=== PATIENT | female | born 1965 | race African-American/Black ===

== ENCOUNTER 2024-06-20 02:09 | Inpatient (IN) | payer MEDICARE, OTHER ==
[2024-06-20] VITALS (13 sets, daily range): BP systolic 104–120; BP diastolic 61–71; PULSE 64–78; RESP 12–20; TEMP 97.8–98.1; O2SAT 94–97
[~2024-06-20] VITALS: Ht 162.6 cm; Wt 51.8 kg
[2024-06-20 02:47] LABS: Basophils # (auto) 0.1 10 ^3/uL (0-0.2); Basophils % (auto) 1.4 % (0.0-2.0); Eosinophils # (auto) 0.1 10 ^3/uL (0-0.8); Eosinophils % (auto) 1.8 % (0.0-7.0); Hematocrit 40.1 % (36.0-46.0); Hemoglobin 13.8 g/dL (12.2-16.2); Lymphocytes # (auto) 1.8 10 ^3/uL (0.4-5.4); Lymphocytes % (auto) 47.1 % (10.0-50.0); Mean Corpuscular Hemoglobin 31.8 pg (28.0-32.0); Mean Corpuscular Hgb Conc. 34.4 g/dL (32.0-36.0); Mean Corpuscular Volume 92.6 fL (80.0-100.0); Monocytes # (auto) 0.5 10 ^3/uL (0-1.3); Monocytes % (auto) 13.5 % (0.0-12.0); Neutrophils # (auto) 1.3 10 ^3/uL (1.6-8.6); Neutrophils % (auto) 36.2 % (37.0-80.0); Nucleated Red Blood Cells % 0.1 %; Platelet Count (auto) 228 10^3/uL (140-450); Red Blood Cells 4.33 10^6/uL (4.0-5.20); Red Cell Distribution Width 14.1 % (11.8-14.3); White Blood Cell 3.7 10^3/uL (4.4-10.8)
--- NOTE | 2024-06-20 02:52 | DVH ---
CHEST RADIOGRAPH Indication: Elevated troponin Technique: Single frontal view of the chest was obtained Comparison: None IMPRESSION: Heart appears normal in size. The lungs appear clear without focal airspace opacity, effusion, or pn eumothorax
[2024-06-20 02:56] LABS: Alanine Aminotransferase 13 U/L (7-40); Alkaline Phosphatase 70 U/L (46-116); Anion Gap 5 (5-15); Aspartate Aminotransferase 20 U/L (13-40); BUN/Creatinine Ratio 10.4 (10.0-20.0); Calcium 9.4 mg/dL (8.7-10.4); Carbon Dioxide 24 mmol/L (20-31); Glucose 95 mg/dL (74-106); Sodium 137 mmol/L (136-145)
[2024-06-20 02:57] LABS: Albumin 3.9 g/dL (3.2-4.8)
[2024-06-20 02:58] LABS: Bilirubin, Total 0.2 mg/dL (0.2-1.0); Blood Urea Nitrogen 8 mg/dL (9-23); Chloride 108 mmol/L (98-107); Total Protein 8.9 g/dL (5.7-8.2)
--- NOTE | 2024-06-20 03:01 | ED.PDOC ---
History of Present Illness HPI Comments 59 y/o F is BIBA as a transfer from [facility] ([facility]) after being found with elevated troponin level value of 0.13 ([facility] reference levels: 0.02- 0.04). Patient comments on, initially, being seen at [facility], due to her son finding her semi-unresponsive at home, slouched over her couch, after having weakness, nausea, vomiting, and diarrhea for the past few days. She denies having any chest pain, shortness of breath, fever, chills, or other associated symptoms or modifiers at this time. Time Seen by MD: 02:20 Reviewed Notes: Nurses Notes, Design Quality Engineer Notes, Medications, Allergies Allergies: Coded Allergies: NO KNOWN ALLERGIES (Unverified , 06/20/24) Information Source: Patient, Transfer Record, Emergency Med Personnel Mode of Arrival: EMS Severity: Moderate Timing: Hours Duration: Since onset Prehospital treatment: 12 Lead EKG, Tube Winder Review of Systems: REVIEW OF SYSTEMS: No fever, no chills, positive fatigue fatigue HEENT: No sore throat, no earache, no congestion, no neck pain. Cardiac: No chest pain. No palpitations. Lungs: No shortness of breath, no cough. GI: Positive nausea vomiting, diarrhea, no constipation, no abdominal pain : No dysuria, frequency, or urgency. No hematuria. Musculoskeletal: No joint pain , no joint swelling, no extremity edema. Skin: No rash, no itching. Neuro: No headache, no dizziness, no weakness, positive syncope Vital Signs Vital Signs Date Time Temp Pulse Resp B/P (MAP) Pulse Ox O2 Delivery O2 Flow Rate FiO2 06/20/24 03:11 66 14 96 Room Air* 0 21 06/20/24 03:00 98.3 112/68 (83) 98.3 Physical Exam General: Awake, alert and oriented. No acute distress. Skin: Skin in warm, dry and intact. Appropriate color for ethnicity. HEENT: The head is normocephalic and atraumatic. Conjunctivae are clear without exudates or hemorrhage. Sclera is non-icteric. EOM are intact. No signs of nystagmus. Eyelids are normal in appearance without swelling or lesions. Oral mucosa is pink and moist Neck: The neck is supple with normal range of motion. No JVD. Cardiac: Heart rate and rhythm are normal. No murmurs, gallops, or rubs are auscultated. Respiratory: No signs of respiratory distress. Lung sounds are clear in all lobes bilaterally without rales, ronchi, or wheezes. Abdominal: Abdomen is soft, non-tender without distention. Bowel sounds are present and normoactive in all four quadrants. Extremities: Upper and lower extremities are atraumatic in appearance without deformity or edema. Neurological: The patient is awake, alert and oriented to person, place, and time with normal speech. Speech is clear. There is no facial asymmetry. Psychiatric: Appropriate mood and affect. Good judgement and insight. No visual or auditory hallucinations. Past Medical History PAST MEDICAL HISTORY: CAD, COPD, HTN Surgical History: PTCA (2x; placements in 2004 and 2008) FINANCE INSURANCE MANAGER History: Denies all FINANCE INSURANCE MANAGER Hx Family History Family History: Unknown Social History Smoker: Non-Smoker Alcohol: Denies ETOH Use Drugs: Denies Drug Use Lives In: Home Was a procedure done? Was a procedure done?: No Differential Dx Considerations may include: elevated troponin, [place], viral syndrome, URI, PNA, bronchitis X-Ray, Labs, Meds, VS Vital Signs Date Time Temp Pulse Resp B/P (MAP) Pulse Ox O2 Delivery O2 Flow Rate FiO2 06/20/24 03:11 66 14 96 Room Air* 0 21 06/20/24 03:00 98.3 66 14 112/68 (83) 96 98.3 06/20/24 02:11 73 06/20/24 02:09 98.2 71 14 110/68 (82) 99 Lab Test 06/20/24 02:23 Range/Units White Blood Count 3.7 L 4.4-10.8 10^3/uL Red Blood Count 4.33 4.0-5.20 10^6/uL Hemoglobin 13.8 12.2-16.2 g/dL Hematocrit 40.1 36.0-46.0 % Mean Corpuscular Volume 92.6 80.0-100.0 fL Mean Corpuscular Hemoglobin 31.8 28.0-32.0 pg Mean Corpuscular Hemoglobin Concent 34.4 32.0-36.0 g/dL Red Cell Distribution Width 14.1 11.8-14.3 % Platelet Count 228 140-450 10^3/uL Mean Platelet Volume 8.7 6.9-10.8 fL Neutrophils (%) (Auto) 36.2 L 37.0-80.0 % Lymphocytes (%) (Auto) 47.1 10.0-50.0 % Monocytes (%) (Auto) 13.5 H 0.0-12.0 % Eosinophils (%) (Auto) 1.8 0.0-7.0 % Basophils (%) (Auto) 1.4 0.0-2.0 % Neutrophils # (Auto) 1.3 L 1.6-8.6 10 ^3/uL Lymphocytes # (Auto) 1.8 0.4-5.4 10 ^3/uL Monocytes # (Auto) 0.5 0-1.3 10 ^3/uL Eosinophils # (Auto) 0.1 0-0.8 10 ^3/uL Basophils # (Auto) 0.1 0-0.2 10 ^3/uL Nucleated Red Blood Cells 0.1 % Sodium Level 137 136-145 mmol/L Potassium Level 4.0 3.5-5.1 mmol/L Chloride Level 108 H 98-107 mmol/L Carbon Dioxide Level 24 20-31 mmol/L Anion Gap 5 5-15 Blood Urea Nitrogen 8 L 9-23 mg/dL Creatinine 0.77 0.550-1.02 mg/dL Glomerular Filtration Rate Calc 88 >90 mL/min BUN/Creatinine Ratio 10.4 10.0-20.0 Serum Glucose 95 74-106 mg/dL Calcium Level 9.4 8.7-10.4 mg/dL Total Bilirubin 0.2 0.2-1.0 mg/dL Aspartate Amino Transferase (AST) 20 13-40 U/L Alanine Aminotransferase (ALT) 13 7-40 U/L Alkaline Phosphatase 70 46-116 U/L Troponin I High Sensitivity 494 *H </=34 ng/L Total Protein 8.9 H 5.7-8.2 g/dL Albumin 3.9 3.2-4.8 g/dL Time of 1ST Reevaluation: 02:50 Reevaluation 1ST: Unchanged Patient Education/Counseling: Treatment, Need For Follow Up Family Education/Counseling: No Family Present Departure 1 Departure Time of Disposition: 03:38 Impression: Primary Impression: NSTEMI (non-ST elevated myocardial infarction) Disposition: 02 SHORT TERM HOSPITAL Condition: Stable Comments 59-year-old female who arrived as a transfer, or so for NSTEMI. Patient initiated on heparin here in the emergency department. Patient admitted for further treatment, evaluation and monitoring. Extensive evaluation was performed in attempt to identify or rule out: (See differential diagnosis section) The following tests were ordered, and results were reviewed by me: (See diagnostic results section) The following test were independently interpreted by me: EKG, chest x-ray I reviewed and agreed with the following test results read by other providers: Chest x-ray I reviewed the following notes from the pt's past medical encounters: N/A Additional information was gathered from interviewing the following independent historians: EMS personnel, Discussion of management or test interpretation with external physician/other qualified health health care recruiter:Dr. Stroud at [facility] @00:09 Addressed an acute or chronic illness that poses a threat to life or bodily function: NSTEMI, possible syncopal episode, coronary artery disease Decision regarding hospitalization or escalation of hospital level of care: Risk and benefits of admission for further treatment of patient's condition was considered. Due to patient's current clinical condition, high risk of decline and poor outcome if discharged and need for further inpatient management and monitoring, patient will be admitted to the hospital. Drug therapy requiring intensive monitoring for toxicity: IV heparin Parenteral controlled substances: N/A Decision regarding elective major surgery with identified patient or procedure risk factors: N/A Decision regarding emergency major surgery: N/A Decision not to resuscitate or to de-escalate care because of poor prognosis: N/A Diagnosis or treatment significantly limited by social determinants of health: N/A Critical Care Note Critical Care Time?: No Stability Stability form required: No Heart Score Heart Score: Heart Score Response (Comments) Value History Slightly Suspicious 0 EKG Normal 0 Age 45-64 1 Risk Factors >3 or Hx ASHD 2 Troponin >3 x's Normal limit 2 Total 5 I personally scribed for BANDAR BONDS MD ([email or web address]) on 06/20/24 at 03:01. Electronically submitted by Jameel Anguiano ([email or web address]). BANDAR BONDS MD Jun 20, 2024 03:01
[2024-06-20 04:03] LABS: Urine Bacteria None Seen /hpf (None Seen)
[2024-06-20 04:22] LABS: INR 1.03 (0.9-1.15); Partial Thromboplastin Time 27.1 SEC (24.5-34.5); Prothrombin Time 10.9 sec (9.3-11.8)
[2024-06-20 04:29] LABS: Urine Blood Negative /uL (Negative); Urine Clarity Clear (Clear); Urine Color Yellow (Yellow); Urine Mucus FEW (None Seen); Urine Protein, UAD TRACE (Negative); Urine Squamous Epithelial Cell FEW /hpf (<5); Urine Urobilinogen 2 mg/dL (Negative); Urine WBC < 1 /HPF (0-5)
[2024-06-20] MEDS ORDERED: MORPHINE SULFATE INJ 2 MG/ml SYRG IV PRN (04:45)
[2024-06-20] MEDS ORDERED: NITROGLYCERIN 0.4 MG SL TAB SL PRN (04:45)
[2024-06-20] MEDS ORDERED: ACETAMINOPHEN 325 MG TAB PO PRN (04:45)
--- NOTE | 2024-06-20 04:48 | DVHHP2 ---
History of Present Illness Reason for Visit: Abnormal labs History of Present Illness 59-year-old female presents for evaluation of abnormal blood work. Patient is being transferred from [facility]. Patient presented to outside facility after she was found unresponsive in her bed by her son. Patient denies dizziness, headache or chest pain. Currently denies any acute complaints. Past Medical History SD, hypertension, COPD, CAD and multiple sclerosis Past Surgical History PTCA Family History Noncontributory Smoke: No ALCOHOL: none Drugs: None Lives: with Family Review of Systems Review of Systems Review of systems are currently negative otherwise addressed in HPI. Allergies: Coded Allergies: NO KNOWN ALLERGIES (Unverified , 06/20/24) Medications Current Medications Medications Dose Ordered Sig/Mile Route Start Time Stop Time Status Last Admin Dose Admin Heparin Sodium/ Dextrose 250 ml @ 6 mls/hr Q24H IV 06/20/24 03:45 Exam Vital Signs Vital Signs Date Time Temp Pulse Resp B/P (MAP) Pulse Ox O2 Delivery O2 Flow Rate FiO2 06/20/24 03:11 66 14 96 Room Air* 0 21 06/20/24 03:00 98.3 112/68 (83) 98.3 Exam Gen: 59-year-old female in no apparent distress. Skin: Warm, dry, normal color and texture, no rash. HEENT: Normocephalic atraumatic, mucous membranes moist and pink. Neck: Cervical and supraclavicular nodes normal without enlargement, trachea is midline, thyroid gland is normal without masses. Pulmonary: Clear to auscultation and percussion bilaterally. Cardiac: Regular rate and rhythm. No murmur Abdomen: Soft, nontender, nondistended, bowel sounds present all 4 quadrants, no guarding, no rigidity, no organomegaly. Extremities: No cyanosis, clubbing, no edema Neuro: Cranial nerves II through XII grossly intact, normal affect and speech, no focal motor deficits. Labs/Xrays G PHYSICIAN: BANDAR BONDS MD PROCEDURE(s): CXR1 - CHEST XRAY 1 VIEW REASON: Elevated troponin ORDER NUMBER(s): [id number], ACCESSION NUMBER(s): [id number] CHEST RADIOGRAPH Indication: Elevated troponin Technique: Single frontal view of the chest was obtained Comparison: None IMPRESSION: Heart appears normal in size. The lungs appear clear without focal airspace opacity, effusion, or pneumothorax normal sinus rhythm with left bundle branch block Labs Test 06/20/24 02:41 06/20/24 02:23 Range/Units Urine Color Yellow Yellow Urine Clarity Clear Clear Urine pH 6.0 5.0-9.0 Urine Specific [place] 1.030 1.001-1.035 Urine Protein Trace H Negative Urine Ketones Negative Negative Urine Blood Negative Negative /uL Urine Nitrite Negative Negative Urine Bilirubin Negative Negative Urine Urobilinogen 2 H Negative mg/dL Urine Leukocyte Esterase Negative Negative /uL Urine RBC 1 0 - 4 /hpf Urine Microscopic WBC < 1 0-5 /HPF Urine Squamous Epithelial Cells Few <5 /hpf Urine Bacteria None seen None Seen /hpf Urine Mucus Few None Seen Urine Glucose Normal Normal mg/dL White Blood Count 3.7 L 4.4-10.8 10^3/uL Red Blood Count 4.33 4.0-5.20 10^6/uL Hemoglobin 13.8 12.2-16.2 g/dL Hematocrit 40.1 36.0-46.0 % Mean Corpuscular Volume 92.6 80.0-100.0 fL Mean Corpuscular Hemoglobin 31.8 28.0-32.0 pg Mean Corpuscular Hemoglobin Concent 34.4 32.0-36.0 g/dL Red Cell Distribution Width 14.1 11.8-14.3 % Platelet Count 228 140-450 10^3/uL Mean Platelet Volume 8.7 6.9-10.8 fL Neutrophils (%) (Auto) 36.2 L 37.0-80.0 % Lymphocytes (%) (Auto) 47.1 10.0-50.0 % Monocytes (%) (Auto) 13.5 H 0.0-12.0 % Eosinophils (%) (Auto) 1.8 0.0-7.0 % Basophils (%) (Auto) 1.4 0.0-2.0 % Neutrophils # (Auto) 1.3 L 1.6-8.6 10 ^3/uL Lymphocytes # (Auto) 1.8 0.4-5.4 10 ^3/uL Monocytes # (Auto) 0.5 0-1.3 10 ^3/uL Eosinophils # (Auto) 0.1 0-0.8 10 ^3/uL Basophils # (Auto) 0.1 0-0.2 10 ^3/uL Nucleated Red Blood Cells 0.1 % Prothrombin Time 10.9 9.3-11.8 sec Prothrombin Time INR 1.03 0.9-1.15 Activated Partial Thromboplast Time 27.1 24.5-34.5 SEC Sodium Level 137 136-145 mmol/L Potassium Level 4.0 3.5-5.1 mmol/L Chloride Level 108 H 98-107 mmol/L Carbon Dioxide Level 24 20-31 mmol/L Anion Gap 5 5-15 Blood Urea Nitrogen 8 L 9-23 mg/dL Creatinine 0.77 0.550-1.02 mg/dL Glomerular Filtration Rate Calc 88 >90 mL/min BUN/Creatinine Ratio 10.4 10.0-20.0 Serum Glucose 95 74-106 mg/dL Calcium Level 9.4 8.7-10.4 mg/dL Total Bilirubin 0.2 0.2-1.0 mg/dL Aspartate Amino Transferase (AST) 20 13-40 U/L Alanine Aminotransferase (ALT) 13 7-40 U/L Alkaline Phosphatase 70 46-116 U/L Troponin I High Sensitivity 494 *H </=34 ng/L Total Protein 8.9 H 5.7-8.2 g/dL Albumin 3.9 3.2-4.8 g/dL Assessment/Plan Assessment/Plan Assessment Syncope Elevated troponin rule out NSTEMI Hypertension History of SD Plan Admit the patient to telemetry to the hospitalist Cardiology consultation Continue heparin drip Resume home medications Continue treatment per orders. Plan discussed with: Patient Date of Service: Jun 20, 2024 Billing Provider: CAPRI MCGRAW Common Visit Codes: [id number] INP/OBS CARE (HIGH) CAPRI MCGRAW Jun 20, 2024 04:48
[2024-06-20] MEDS: HEPARIN SODIUM (PORCINE) 5000 UNITS/ML 1ML VIAL IV ONE (04:49)
[2024-06-20] MEDS: HEPARIN DRIP/D5W 100UNITS/ML 250 ML IV SCH ×2 (04:50→12:14)
--- NOTE | 2024-06-20 05:24 | DVH ---
EXAM: CT Head Without Intravenous Contrast CLINICAL INDICATION: syncope TECHNIQUE: Axial computed tomography images of the head/brain without intravenous contrast. This CT exam was performed using one or more of the following dose reduction techniques: automated exposure control, adjustment of the mA and/or kV according to patient size, and/or use of iterative reconstru ction technique. CONTRAST: RADIATION DOSE: CTDIvol = 50.4 mGy, DLP = 808.14 mGy-cm COMPARISON: None FINDINGS: BRAIN AND EXTRA-AXIAL SPACES: No acute intracranial hemorrhage, midline shift or mass effect. If sy mptoms persist, further evaluation with MRI is recommended. No significant white matter disease. BONES/JOINTS: Unremarkable. No acute fracture. SOFT TISSUES: Unremarkable. SINUSES: Unremarkable as visualized. No acute sinusitis. MASTOID AIR CELLS: Unremarkable as visualized. No mastoid effusion. OTHER FINDINGS: . IMPRESSION: No acute intracranial hemorrhage, midline shift or mass effect. If symptoms persist, further evaluat ion with MRI is recommended.
--- NOTE | 2024-06-20 06:41 | ECG ---
[facility] Test Date: 2024-06-20 Test Time: 02:11:59 Pat Name: VILLA ROSA Department: ED Room: 0246T Gender: F 911 Dispatcher: STACY : 1965 Requested By: BNADAR BONDS Order Number: [id number] Reading MD: Florenitn Foreman Measurements Intervals Arthur Rate: 73 P: 73 [place]: 141 QRS: 34 QRSD: 128 T: 89 QT: 392 QTc: 432 Interpretive Statements Sinus rhythm Left atrial enlargement Left bundle branch block Electronically Signed On 06-23-2024 18:52:49 PDT by Florentin Foreman Please click the below link to view image of tracing.
--- NOTE | 2024-06-20 09:00 | DVH ---
Carotid Duplex Date: 06/20/2024 08:06 AM Clinical History: syncope Comparison: None Technique: Duplex Doppler evaluation of the extracranial carotid and vertebral arteries including color Doppler and spectral/pulsed waveform analysis was performed. Findings: Velocities and ratios within limits IMPRESSION: No hemodynamically significant stenosis noted in the right carotid system. No hemodynamically significant stenosis noted in the left carotid system. Reference: Radiology 2003; 229:340-346
[2024-06-20] MEDS: METOPROLOL TARTRATE 25 MG TAB PO SCH (10:00)
[2024-06-20] MEDS ORDERED: ASPirin 81 mg TAB PO SCH (10:00)
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
[2024-06-20 11:14] LABS: Cannabinoid Screen, Urine Pos (NEGATIVE)
[2024-06-20 11:14] LABS: INR 1.08 (0.9-1.15); Partial Thromboplastin Time 43.9 SEC (24.5-34.5); Prothrombin Time 11.4 sec (9.3-11.8)
[2024-06-20 11:32] LABS: Amphetamine Screen, Urine Neg (NEGATIVE); Barbiturate Scree,Urine Neg (NEGATIVE); Benzodiazephine Screen, Urine Neg (NEGATIVE); Cocaine Screen, Urine Neg (NEGATIVE); Opiate Scree,Urine Neg (NEGATIVE); Phencyclidine Screen, Urine Neg (NEGATIVE)
[2024-06-20 11:50] LABS: Magnesium 1.9 mg/dL (1.6-2.6)
--- NOTE | 2024-06-20 12:23 | CONS ---
Pharmacy Clinical Information: Heparin per pharmacy Spoke to GENNY Goncalves regarding heparin dose change Current dose: 600 units/hr Current aPTT: 43.9 on 06/20/24 @ 10:40 Bolus: No Increase (new dose): 800 units/hr Date and time new dose started: 06/20/24 @ 12:14 Next aPTT: 06/20/24 @ 18:00 GENNY Goncalves read back new dose: 800 units/hr Comments: to clarify and/or to report heparin errors (e.g., value entered wrong on the IV pump) ERNA CUMMINGS [facility] Jun 20, 2024 12:23
[2024-06-20] MEDS: MIDAZOLAM HCL 2MG/2ML 2ml VIAL (1mg/ml) ONE (12:33)
[2024-06-20] MEDS: fentaNYL CITRATE 100 MCG/2 ML VL ONE (12:33)
[2024-06-20] MEDS: LIDOCAINE 2%HCL (LOCAL ANESTH.) INJ 20ML MDV ONE (12:33)
[2024-06-20] MEDS: ANGIOMAX 250 MG VIAL IV ONE (12:33)
[2024-06-20] MEDS: HEPARIN SODIUM (PORCINE) 5000 UNITS/ML 1ML VIAL ONE (12:33)
[2024-06-20] MEDS: SODIUM CHL 0.9% 0 ML ONE (12:34)
[2024-06-20] MEDS: VERAPAMIL 2.5MG/ML INJ 2ML VIAL IV ONE (12:36)
--- NOTE | 2024-06-20 13:32 | DVHPN2 ---
Reviewed: Care Plan, H&P, Labs, Medications, Previous Orders, Radiology Changes from previous H/P or p: No Changes Objective Vitals Vital Signs Date Time Temp Pulse Resp B/P (MAP) Pulse Ox O2 Delivery O2 Flow Rate FiO2 06/20/24 12:00 98.4 62 15 104/55 (71) 98 98.4 06/20/24 07:45 Room Air* 0 21 Medications Current Medications Medications Dose Ordered Sig/Mile Route Start Time Stop Time Status Last Admin Dose Admin Metoprolol Tartrate 12.5 mg BID PO 06/20/24 10:00 Atorvastatin Calcium 40 mg HS PO 06/20/24 22:00 Ondansetron HCl 4 mg Q4HP PRN IV 06/20/24 04:45 Acetaminophen 650 mg Q6HP PRN PO 06/20/24 04:45 Nitroglycerin 0.4 mg Q5MINP PRN SL 06/20/24 04:45 Morphine Sulfate 2 mg Q30M PRN IV 06/20/24 04:45 Aspirin 81 mg DAILY PO 06/21/24 10:00 Ticagrelor 90 mg BID PO 06/20/24 22:00 Heparin Sodium/ Dextrose 250 ml @ 8 mls/hr Q24H IV 06/20/24 12:00 06/20/24 12:14 8 MLS/HR Laboratory Results Laboratory Tests 06/20/24 02:23 Chemistry Test 06/20/24 02:23 06/20/24 08:36 Albumin 3.9 g/dL (3.2-4.8) Calcium Level 9.4 mg/dL (8.7-10.4) Total Protein 8.9 g/dL (5.7-8.2) H Magnesium Level 1.9 mg/dL (1.6-2.6) Coagulation Test 06/20/24 02:23 06/20/24 10:40 Prothrombin Time 10.9 sec (9.3-11.8) 11.4 sec (9.3-11.8) Prothrombin Time INR 1.03 (0.9-1.15) 1.08 (0.9-1.15) Activated Partial Thromboplast Time 27.1 SEC (24.5-34.5) 43.9 SEC (24.5-34.5) H Lipid panel Test 06/20/24 08:36 Cholesterol Level 121 mg/dL (< 200) HDL Cholesterol 36 mg/dL (40-59) L Triglycerides Level 58 mg/dL (< 150) LFT Test 06/20/24 02:23 Alanine Aminotransferase (ALT) 13 U/L (7-40) Alkaline Phosphatase 70 U/L (46-116) Aspartate Amino Transferase (AST) 20 U/L (13-40) Total Bilirubin 0.2 mg/dL (0.2-1.0) HgA1c, TSH Test 06/20/24 02:23 06/20/24 08:36 Hemoglobin A1c 5.5 % A1C (<5.7) Thyroid Stimulating Hormone (TSH) 1.83 uIU/mL (0.55-4.78) Urinalysis Test 06/20/24 02:41 Urine Color Yellow (Yellow) Urine Clarity Clear (Clear) Urine pH 6.0 (5.0-9.0) Urine Specific [place] 1.030 (1.001-1.035) Urine Protein Trace (Negative) H Urine Ketones Negative (Negative) Urine Blood Negative /uL (Negative) Urine Nitrite Negative (Negative) Urine Bilirubin Negative (Negative) Urine Urobilinogen 2 mg/dL (Negative) H Urine Leukocyte Esterase Negative /uL (Negative) Urine RBC 1 /hpf (0 - 4) Urine Microscopic WBC < 1 /HPF (0-5) Urine Squamous Epithelial Cells Few /hpf (<5) Urine Bacteria None seen /hpf (None Seen) Urine Mucus Few (None Seen) Urine Glucose Normal mg/dL (Normal) Labs and/or images reviewed: Labs reviewed by me, Image(s) reviewed by me Assessment/Plan Assessment/Plan Transferred from [facility] NSTEMI, rule out progressive coronary artery disease: Heparin drip, patient getting left heart catheterization Coronary artery disease status post PTCA x2 JO ANN (on Brilinta and aspirin) Rule out structural heart disease History myocardial infarction Hypertension Dyslipidemia Multiple sclerosis Asthma Depression Tobacco use Time spent 50 minutes Patient is full code Plan discussed with: Patient Date of Service: Jun 20, 2024 Billing Provider: OUMOU BAPTISTE MD Common Visit Codes: [id number] CARE 30-74 MIN OUMOU BAPTISTE MD Jun 20, 2024 13:32
--- NOTE | 2024-06-20 14:29 | DVHOP2 ---
Operative Report - 2 Report Details Date: 06/20/24 Preop Diagnosis: CLINICAL PROFILE: Patient with a noted history of coronary artery disease and cardiomyopathy. Comes in with recurrent chest pain and shortness of breath. Cardiac consultation was requested for angiographic evaluation. Postop Diagnosis: Cardiomyopathy. Surgeon: Jacob Foreman MD Anesthesiologist: Conscious sedation Anesthesia: Mac, Local (nd fentanyl ordered by me. I Monocryl the patient about the entirety of the procedure.) Consent: The patient was informed of the risks and benefits of the procedure. These i nclude but are not limited to complications of anesthesia, postoperative infection, incomplete relief of symptoms, recurrence of symptoms, damage to blood vessels, nerves and tendons, deep venous thrombosis, pulmonary embolism and possible need for repeat surgery in the future. Complications: No complications Estimated Blood Loss: 3 cc Findings: Non stent restenosis of LAD. Cardiomyopathy. Indications for Surgery: Chest pain. Name of Procedure Performed Bilateral cine coronary angiography, left ventriculography, Procedure Details Procedure Details: Prior local anesthesia with 2% lidocaine to the right wrist and full informed consent obtained the patient was prepped and draped in usual fashion followed by placement of a six Welsh sheath in the radial artery through which a Kadriana catheter was used for ventriculography and cannulation of both right and left coronary ostia without complications. Hemodynamics: Aortic blood pressure was 100/50. End-diastolic pressure was eight. No gradient across the aortic valve on pullback. Coronary anatomy: The RCA is a large vessel it is dominant. No stenosis in its proximal mid and distal segments. PDA and posterolateral branches are normal. Left main is large and normal. Left anterior descending is large and normal. Stented segment of the proximal LAD with what in stent restenosis. The mid and distal segments were normal. The diagonals are normal. Circumflex is a large vessel with two marginals free of significant disease. Ventriculography in the HAJI projection shows an EF of 20% with severe global hypokinesis. Impression: Normal left ventricular end-diastolic pressure at rest with decreased left ventricular ejection fraction. No significant CAD. Recommendations: Therapy is warranted continue risk factor modification. Condition Good Disposition Still a Patient Date of Service: Jun 20, 2024 Billing Provider: JACOB FOREMAN Sr., MD Cardiology Common Codes: [id number] INP/OBS CARE (High) Cardiology Procedure Codes: [id number]-[id number] ADD CORONARY BRANCH, 02285-PGFW HEART CATH W/INTRA INJ JACOB FOREMAN Sr., MD Jun 20, 2024 14:29
[2024-06-20] MEDS: TICAGRELOR 90 MG TAB PO SCH (21:41)
[2024-06-20] MEDS: ATORVASTATIN 20 MG TAB PO SCH (21:42)
[2024-06-21] VITALS (9 sets, daily range): BP systolic 109–126; BP diastolic 59–82; PULSE 62–76; RESP 18; TEMP 97.5–98.2; O2SAT 97–100
[2024-06-21] MEDS: guaiFENesin-DM 100/10mg/5ml SYR PO PRN (03:33)
[2024-06-21 06:13] LABS: Chloride 106 mmol/L (98-107); Potassium 4.3 mmol/L (3.5-5.1); Sodium 137 mmol/L (136-145)
[2024-06-21 06:14] LABS: Anion Gap 3 (5-15); Calcium 9.7 mg/dL (8.7-10.4); Carbon Dioxide 28 mmol/L (20-31)
[2024-06-21 06:19] LABS: Blood Urea Nitrogen 9 mg/dL (9-23); Glucose 92 mg/dL (74-106)
--- NOTE | 2024-06-21 09:33 | DVHPN2 ---
Reviewed: Care Plan, H&P, Labs, Medications, Previous Orders, Radiology Changes from previous H/P or p: No Changes Objective Vitals Vital Signs Date Time Temp Pulse Resp B/P (MAP) Pulse Ox O2 Delivery O2 Flow Rate FiO2 06/21/24 08:20 67 Nasal Cannula* 1 24 06/21/24 05:00 97.5 18 126/78 (94) 98 97.5 Intake/Output Intake and Output 06/21/24 07:00 Intake Total 340 ml Balance 340 ml Intake Oral 340 ml # Voids 4 Medications Current Medications Medications Dose Ordered Sig/Mile Route Start Time Stop Time Status Last Admin Dose Admin Atorvastatin Calcium 40 mg HS PO 06/20/24 22:00 06/20/24 21:42 40 MG Ondansetron HCl 4 mg Q4HP PRN IV 06/20/24 04:45 Acetaminophen 650 mg Q6HP PRN PO 06/20/24 04:45 Nitroglycerin 0.4 mg Q5MINP PRN SL 06/20/24 04:45 Morphine Sulfate 2 mg Q30M PRN IV 06/20/24 04:45 Aspirin 81 mg DAILY PO 06/21/24 10:00 Ticagrelor 90 mg BID PO 06/20/24 22:00 06/20/24 21:41 90 MG Guaifenesin/ Dextromethorphan 10 ml Q6HPRN PRN PO 06/21/24 03:30 06/21/24 03:33 10 ML Metoprolol Succinate 25 mg DAILY PO 06/21/24 10:00 UNV Sacubitril/ Valsartan 1 tab BID PO 06/21/24 10:00 UNV Empaglifozin 10 mg DAILY PO 06/21/24 10:00 UNV Laboratory Results Laboratory Tests 06/20/24 02:23 06/21/24 05:48 Chemistry Test 06/21/24 05:48 Calcium Level 9.7 mg/dL (8.7-10.4) Coagulation Test 06/20/24 10:40 Prothrombin Time 11.4 sec (9.3-11.8) Prothrombin Time INR 1.08 (0.9-1.15) Activated Partial Thromboplast Time 43.9 SEC (24.5-34.5) H Urinalysis Test 06/20/24 02:41 Urine Color Yellow (Yellow) Urine Clarity Clear (Clear) Urine pH 6.0 (5.0-9.0) Urine Specific [place] 1.030 (1.001-1.035) Urine Protein Trace (Negative) H Urine Ketones Negative (Negative) Urine Blood Negative /uL (Negative) Urine Nitrite Negative (Negative) Urine Bilirubin Negative (Negative) Urine Urobilinogen 2 mg/dL (Negative) H Urine Leukocyte Esterase Negative /uL (Negative) Urine RBC 1 /hpf (0 - 4) Urine Microscopic WBC < 1 /HPF (0-5) Urine Squamous Epithelial Cells Few /hpf (<5) Urine Bacteria None seen /hpf (None Seen) Urine Mucus Few (None Seen) Urine Glucose Normal mg/dL (Normal) Labs and/or images reviewed: Labs reviewed by me, Image(s) reviewed by me Assessment/Plan Assessment/Plan Transferred from [facility] NSTEMI, rule out progressive coronary artery disease: Status post left heart catheterization by Dr. Foreman on 06-20-24 with no significant restenosis of the stents of LAD continue aspirin Brilinta Jardiance Entresto metoprolol Lipitor History myocardial infarction Hypertension Dyslipidemia Multiple sclerosis Asthma Depression Tobacco use Time spent 50 minutes Patient is full code Plan discussed with: Patient Date of Service: Jun 21, 2024 Billing Provider: OUMOU BAPTISTE MD Common Visit Codes: [id number] INP/OBS CARE(HIGH) OUMOU BAPTISTE MD Jun 21, 2024 09:33
[2024-06-21] MEDS: EMPAGLIFLOZIN 10 MG TAB PO SCH (09:44)
[2024-06-21] MEDS: ASPirin 81 mg TAB PO SCH (09:45)
[2024-06-21] MEDS: SACUBITRIL-VALSARTAN 24mg/26mg TAB PO SCH (09:45)
[2024-06-21] MEDS: METOPROLOL SUCCINATE XL 50 MG TAB PO SCH (09:46)
[2024-06-21] MEDS: ONDANSETRON HCL 4 MG/2 ML VIAL IV PRN (13:24)
--- NOTE | 2024-06-21 15:03 | DVHPN2 ---
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 Dressing to right wrist is clean, dry, and intact Objective vital signs Vital Sign Date Time Temp Pulse Resp B/P (MAP) Pulse Ox O2 Delivery O2 Flow Rate FiO2 06/21/24 09:46 70 122/80 06/21/24 09:00 97.9 18 99 97.9 06/21/24 08:20 Nasal Cannula* 1 24 Total Intake and Output 06/20/24 06/20/24 06/21/24 15:00 23:00 07:00 Intake Total 100 ml 240 ml Balance 100 ml 240 ml medications Current Medications Medications Dose Ordered Sig/Mile Route Start Time Stop Time Status Last Admin Dose Admin Atorvastatin Calcium 40 mg HS PO 06/20/24 22:00 06/20/24 21:42 40 MG Ondansetron HCl 4 mg Q4HP PRN IV 06/20/24 04:45 06/21/24 13:24 4 MG Acetaminophen 650 mg Q6HP PRN PO 06/20/24 04:45 Nitroglycerin 0.4 mg Q5MINP PRN SL 06/20/24 04:45 Morphine Sulfate 2 mg Q30M PRN IV 06/20/24 04:45 Aspirin 81 mg DAILY PO 06/21/24 10:00 06/21/24 09:45 81 MG Ticagrelor 90 mg BID PO 06/20/24 22:00 06/21/24 09:44 90 MG Guaifenesin/ Dextromethorphan 10 ml Q6HPRN PRN PO 06/21/24 03:30 06/21/24 03:33 10 ML Metoprolol Succinate 25 mg DAILY PO 06/21/24 10:00 06/21/24 09:46 25 MG Sacubitril/ Valsartan 1 tab BID PO 06/21/24 10:00 06/21/24 09:45 1 TAB Empaglifozin 10 mg DAILY PO 06/21/24 10:00 06/21/24 09:44 10 MG Examination: GENERAL:Normal, LUNGS:Normal, CVS:Normal, NEURO:Normal laboratory and microbiology Laboratory Tests 06/21/24 05:48 06/20/24 02:23 Test 06/21/24 05:48 Range/Units Serum Glucose 92 74-106 mg/dL Problem List/Assessment/Plan Problem List/Assessment/Plan NSTEMI, ruled out progressive coronary artery disease Coronary artery disease status post PTCA x2 JO ANN (on Brilinta and aspirin) Rule out structural heart disease History myocardial infarction Hypertension Dyslipidemia Multiple sclerosis Asthma Depression Tobacco use Plan/Recommendation (Dr. Foreman): * Transthoracic echocardiogram to evaluate cardiac function * Continue dual antiplatelet therapy * Continue lipid-lowering agent * Close Cardiac surveillance; notify cardio team for any ECG changes The patient underwent a coronary angiogram with left heart catheterization with without catheter based intervention on 06/20/24. We are still awaiting the results of the transthoracic echocardiogram, but it was worth noting that ventriculography in the HAJI projection shows EF of 20% with severe global hypokinesis. At this time we will initiate guideline directed medical therapy for CHF as tolerated, continue dual antiplatelet therapy (for previous stents), and lipid-lowering agent. Consider MRA (spironolactone) with stable potassium. The patient was educated that she will need to follow up with a grocery checker in the outpatient setting. The patient verbalized an understanding. Thank you for allowing us to care for this patient. Please call with any questions or concerns. This medical document was created using an electronic medical record system with voice recognition software and computerized dictation system. Although this document has been carefully reviewed, there might still be some phonetic and typographical errors. Occasional wrong-word or ``sound-alike substitutions may have occurred due to the inherent limitations of voice recognition software. These areas are purely typographical due to imperfections of the software programs and do not reflect any compromise in the patient's medical care. Please read the chart carefully and recognize, using context, where these substitutions have occurred. Plan discussed with: Patient Date of Service: Jun 21, 2024 Billing Provider: LARA OTERO Common Visit Codes: [id number] INP/OBS CARE(HIGH) LARA OTERO Jun 21, 2024 15:03
[2024-06-22 01:00] VITALS: BP 113/71; PULSE 56; RESP 18; TEMP 98.5; O2SAT 100
[2024-06-22 05:30] VITALS: BP 109/67; PULSE 60; RESP 16; TEMP 98.1; O2SAT 98
[2024-06-22 08:03] VITALS: PULSE 56
[2024-06-22 09:00] VITALS: BP 103/64; PULSE 64; RESP 15; TEMP 97.7; O2SAT 100
--- NOTE | 2024-06-22 09:58 | DVHPN2 ---
Reviewed: Care Plan, H&P, Labs, Medications, Previous Orders, Radiology Changes from previous H/P or p: No Changes Objective Vitals Vital Signs Date Time Temp Pulse Resp B/P (MAP) Pulse Ox O2 Delivery O2 Flow Rate FiO2 06/22/24 09:29 64 101/58 06/22/24 09:00 97.7 15 100 97.7 06/22/24 08:06 Nasal Cannula* 1 24 Intake/Output Intake and Output 06/22/24 07:00 Intake Total 1440 ml Balance 1440 ml Intake Oral 1440 ml # Voids 8 Medications Current Medications Medications Dose Ordered Sig/Mile Route Start Time Stop Time Status Last Admin Dose Admin Atorvastatin Calcium 40 mg HS PO 06/20/24 22:00 06/21/24 21:24 40 MG Ondansetron HCl 4 mg Q4HP PRN IV 06/20/24 04:45 06/21/24 13:24 4 MG Acetaminophen 650 mg Q6HP PRN PO 06/20/24 04:45 Nitroglycerin 0.4 mg Q5MINP PRN SL 06/20/24 04:45 Morphine Sulfate 2 mg Q30M PRN IV 06/20/24 04:45 Aspirin 81 mg DAILY PO 06/21/24 10:00 06/22/24 09:27 81 MG Ticagrelor 90 mg BID PO 06/20/24 22:00 06/22/24 09:29 90 MG Guaifenesin/ Dextromethorphan 10 ml Q6HPRN PRN PO 06/21/24 03:30 06/21/24 21:24 10 ML Metoprolol Succinate 25 mg DAILY PO 06/21/24 10:00 06/21/24 09:46 25 MG Sacubitril/ Valsartan 1 tab BID PO 06/21/24 10:00 06/22/24 09:26 1 TAB Empaglifozin 10 mg DAILY PO 06/21/24 10:00 06/22/24 09:27 10 MG Laboratory Results Laboratory Tests 06/20/24 02:23 06/21/24 05:48 Urinalysis Test 06/20/24 02:41 Urine Color Yellow (Yellow) Urine Clarity Clear (Clear) Urine pH 6.0 (5.0-9.0) Urine Specific [place] 1.030 (1.001-1.035) Urine Protein Trace (Negative) H Urine Ketones Negative (Negative) Urine Blood Negative /uL (Negative) Urine Nitrite Negative (Negative) Urine Bilirubin Negative (Negative) Urine Urobilinogen 2 mg/dL (Negative) H Urine Leukocyte Esterase Negative /uL (Negative) Urine RBC 1 /hpf (0 - 4) Urine Microscopic WBC < 1 /HPF (0-5) Urine Squamous Epithelial Cells Few /hpf (<5) Urine Bacteria None seen /hpf (None Seen) Urine Mucus Few (None Seen) Urine Glucose Normal mg/dL (Normal) Labs and/or images reviewed: Labs reviewed by me, Image(s) reviewed by me Assessment/Plan Assessment/Plan Transferred from [facility] NSTEMI, ruled out progressive coronary artery disease Coronary artery disease status post PTCA x2 JO ANN (on Brilinta and aspirin) Rule out structural heart disease History myocardial infarction Hypertension Dyslipidemia Multiple sclerosis Asthma Depression Tobacco use Noncompliance: Patient says she has not been using any heart meds Plan discussed with: Patient Date of Service: Jun 22, 2024 Billing Provider: OUMOU BAPTISTE MD Common Visit Codes: [id number] INP/OBS CARE(HIGH) OUMOU BAPTISTE MD Jun 22, 2024 09:58
--- NOTE | 2024-06-22 10:05 | DVHDS2 ---
Discharge Summary Date of Admission Jun 20, 2024 at 04:41 Date of Discharge: Jun 22, 2024 Admitting Diagnosis Chest pain Wounds: Left heart catheterization Labs/Diagnostic Data: Laboratory Results Test 06/21/24 05:48 06/20/24 10:40 06/20/24 08:36 06/20/24 02:41 Sodium Level 137 mmol/L (136-145) Potassium Level 4.3 mmol/L (3.5-5.1) Chloride Level 106 mmol/L (98-107) Carbon Dioxide Level 28 mmol/L (20-31) Anion Gap 3 (5-15) Blood Urea Nitrogen 9 mg/dL (9-23) Creatinine 0.90 mg/dL (0.550-1.02) Glomerular Filtration Rate Calc 73 mL/min (>90) BUN/Creatinine Ratio 10.0 (10.0-20.0) Serum Glucose 92 mg/dL (74-106) Calcium Level 9.7 mg/dL (8.7-10.4) Prothrombin Time 11.4 sec (9.3-11.8) Prothrombin Time INR 1.08 (0.9-1.15) Activated Partial Thromboplast Time 43.9 SEC (24.5-34.5) Magnesium Level 1.9 mg/dL (1.6-2.6) Troponin I High Sensitivity 465 ng/L (</=34) Triglycerides Level 58 mg/dL (< 150) Cholesterol Level 121 mg/dL (< 200) LDL Cholesterol 75 mg/dL (< 100) HDL Cholesterol 36 mg/dL (40-59) Thyroid Stimulating Hormone (TSH) 1.83 uIU/mL (0.55-4.78) Urine Color Yellow (Yellow) Urine Clarity Clear (Clear) Urine pH 6.0 (5.0-9.0) Urine Specific [place] 1.030 (1.001-1.035) Urine Protein Trace (Negative) Urine Ketones Negative (Negative) Urine Blood Negative /uL (Negative) Urine Nitrite Negative (Negative) Urine Bilirubin Negative (Negative) Urine Urobilinogen 2 mg/dL (Negative) Urine Leukocyte Esterase Negative /uL (Negative) Urine RBC 1 /hpf (0 - 4) Urine Microscopic WBC < 1 /HPF (0-5) Urine Squamous Epithelial Cells Few /hpf (<5) Urine Bacteria None seen /hpf (None Seen) Urine Mucus Few (None Seen) Urine Glucose Normal mg/dL (Normal) Urine Opiates Screen Neg (NEGATIVE) Urine Fentanyl Screen Neg (NEGATIVE) Urine Barbiturates Screen Neg (NEGATIVE) Urine Phencyclidine Screen Neg (NEGATIVE) Urine Amphetamines Screen Neg (NEGATIVE) Urine Benzodiazepines Screen Neg (NEGATIVE) Urine Cocaine Screen Neg (NEGATIVE) Urine Cannabinoids Screen Pos (NEGATIVE) Test 06/20/24 02:23 White Blood Count 3.7 10^3/uL (4.4-10.8) Red Blood Count 4.33 10^6/uL (4.0-5.20) Hemoglobin 13.8 g/dL (12.2-16.2) Hematocrit 40.1 % (36.0-46.0) Mean Corpuscular Volume 92.6 fL (80.0-100.0) Mean Corpuscular Hemoglobin 31.8 pg (28.0-32.0) Mean Corpuscular Hemoglobin Concent 34.4 g/dL (32.0-36.0) Red Cell Distribution Width 14.1 % (11.8-14.3) Platelet Count 228 10^3/uL (140-450) Mean Platelet Volume 8.7 fL (6.9-10.8) Neutrophils (%) (Auto) 36.2 % (37.0-80.0) Lymphocytes (%) (Auto) 47.1 % (10.0-50.0) Monocytes (%) (Auto) 13.5 % (0.0-12.0) Eosinophils (%) (Auto) 1.8 % (0.0-7.0) Basophils (%) (Auto) 1.4 % (0.0-2.0) Neutrophils # (Auto) 1.3 10 ^3/uL (1.6-8.6) Lymphocytes # (Auto) 1.8 10 ^3/uL (0.4-5.4) Monocytes # (Auto) 0.5 10 ^3/uL (0-1.3) Eosinophils # (Auto) 0.1 10 ^3/uL (0-0.8) Basophils # (Auto) 0.1 10 ^3/uL (0-0.2) Nucleated Red Blood Cells 0.1 % Hemoglobin A1c 5.5 % A1C (<5.7) Total Bilirubin 0.2 mg/dL (0.2-1.0) Aspartate Amino Transferase (AST) 20 U/L (13-40) Alanine Aminotransferase (ALT) 13 U/L (7-40) Alkaline Phosphatase 70 U/L (46-116) Total Protein 8.9 g/dL (5.7-8.2) Albumin 3.9 g/dL (3.2-4.8) Other Laboratory Tests 06/21/24 05:48 06/20/24 02:23 Brief Hx & Hospital Course: 59-year-old female with a history of coronary artery disease status post PTCA with two stents on Brilinta and aspirin history of IA hypertension hyperlipidemia multiple sclerosis asthma depression and tobacco use noncompliant not taking heart medications for some time transferred from [facility] for chest pain. Troponin in the range of 400s. Left heart catheterization by Dr. Foreman rule out coronary artery disease ejection fraction 20 percent advised to continue on aspirin and Brilinta at the time of discharge patient is asymptomatic with no chest pain. Prescription for medications transmitted to the pharmacy. She was strongly advised for compliance with the medications Consults/Reason for consult Cardiology Dr. Foreman Operations or Procedures Left heart catheterization Condition at Discharge: Fair Final Diagnosis/Problems List Transferred from [facility], ruled out progressive coronary artery disease Coronary artery disease status post PTCA x2 JO ANN (on Brilinta and aspirin) Rule out structural heart disease History myocardial infarction Hypertension Dyslipidemia Multiple sclerosis Asthma Depression Tobacco use Noncompliance: Patient says she has not been using any heart meds Discharge Disposition: Home Discharge Instruct/Medications Diet: Cardiac 2g Na,low cholest Activity: Light activity Follow Up/Referral: Follow up with the primary Dr and your social welfare administrator in [place] Medications: Transmitted to the pharmacy 35 (Time taken for discharge summary 35 minutes) Discharge Statement: "Patient was advised to return to the ER or call 911 if any headaches, dizziness, shortness of breath, chest pain, abdominal pain, bleeding, fevers, or worsening of medical condition. Patient was counseled about treatment plan, medications, possible side effects, patientverbalized understanding. All questions were answered to the best of my ability. This discharge took greater then 30 minutes in planning, reviewing documentation, counseling the patient, and discussing with other team members." ASSESSMENT ASSESSMENT Hospital Course Improved Assessment Transferred from [facility], ruled out progressive coronary artery disease Coronary artery disease status post PTCA x2 JO ANN (on Brilinta and aspirin) Rule out structural heart disease History myocardial infarction Hypertension Dyslipidemia Multiple sclerosis Asthma Depression Tobacco use Noncompliance: Patient says she has not been using any heart meds Date of Service: Jun 22, 2024 Billing Provider: OUMOU BAPTISTE MD Common Visit Codes: [id number] DISCH DAY >30min OUMOU BAPTISTE MD Jun 22, 2024 10:05
[2024-06-22 10:58] VITALS: BP 101/58; PULSE 64; TEMP 36.5
[2024-06-22 13:00] VITALS: BP 94/61; PULSE 60; RESP 17; TEMP 97.3; O2SAT 96
[2024-06-22] MEDS ORDERED: ASPI-628 PO (13:18)
[2024-06-22] MEDS ORDERED: ATOR-507 PO (13:18)
[2024-06-22] MEDS ORDERED: EMPA1TAB PO (13:18)
[2024-06-22] MEDS ORDERED: SACU1TAB PO (13:18)
[2024-06-22] MEDS ORDERED: METO25TA93 PO (13:18)
[2024-06-22] MEDS ORDERED: TICA90TA PO (13:18)
--- NOTE | 2024-06-22 17:40 | DVHSR ---
APPROVED REPORT EXAM: Two-dimensional and M-mode echocardiogram with Doppler and color Doppler. Blood Pressure: 104/55 mmHg INDICATION Syncope RISK FACTORS Height: 5'4", Weight: 107 DIMENSIONS LVDd6.2 (3.8-5.7cm)LA (2D)4.1 (1.9-4.0cm)Aortic Root2.7 (2.0-3.7cm) LVDs5.2 (2.5-4.0cm)LA (MM) (1.9-4.0cm)Aortic Cusp Exc1.5 (1.5-2.0cm) EF (%) 30.0 (55-70%)Rt. Atrium3.0 (1.9-4.0cm)Asc. Aorta3.1 cm IVSd0.3 (0.7-1.1cm)RV (D) (1.8-2.4cm) PWd1.0 (0.7-1.1cm) Mitral Valve MitralMitral Stenosis E wave0.78m/sMV Mean GR.mmHg A wave1.02m/sMV Peak GR.mmHg E/A ratio0.82D MVAcm2 DECEL [id number] 1/2 [place] Aortic Valve Aortic ValveAortic Stenosis V10.69m/Thomas Mean GR.4mmHg V21.47m/Thomas Peak GR.9mmHg LVOT Diameter2.2 (1.8-2.4cm)Doppler AVA1.78cm2 Other Information Quality : Technically LimitedRhythm : Technically limited study due to body habitus. Conclusion Technically good study. Sinus rhythm. Dilated left ventricle of [id number] degree. Dilated left atrium. Valves appear to be structurally normal. Diminished excursion of the mitral leaflet secondary to poo r cardiac output. Thinning of the interventricular septum with associated akinesis. Akinetic anterior wall. Left vent ricular function is diminished. There is also akinesis of the inferior apical and apical segment of the left ventricle. EF is approximately 15-20%. RV function is about 45-50%. Spontaneous contrast noted in left ventricle. Doppler reveals no significant regurgitant jets. Mild mitral insufficiency. No pericardial effusion masses or vegetations.
== END 2024-06-22 14:00 | disposition home or self-care (01) | DRG 281 ==
LOC: EDBD 02:09 → ER 02:09 → OVERFLOW 04:41 → TELE-EAST 16:06
PROVIDERS: ADMIT Family Medicine; ATTEND Family Medicine
PROC: 4A023N7 Measurement of Cardiac Sampling and Pressure, Left Heart, Percutaneous Approach (ICD-10-PCS; principal; 2024-06-20)
PROC: B211YZZ Fluoroscopy of Multiple Coronary Arteries using Other Contrast (ICD-10-PCS; 2024-06-20)
PROC: B215YZZ Fluoroscopy of Left Heart using Other Contrast (ICD-10-PCS; 2024-06-20)
DX: I21.4 Non-ST elevation (NSTEMI) myocardial infarction (principal); I42.9 Cardiomyopathy, unspecified; G35 Multiple sclerosis; I10 Essential (primary) hypertension; E78.5 Hyperlipidemia, unspecified; F32.A Depression, unspecified; J44.89 Other specified chronic obstructive pulmonary disease; I44.7 Left bundle-branch block, unspecified; Z91.199 Patient's noncompliance with other medical treatment and regimen due to unspecified reason; Z95.5 Presence of coronary angioplasty implant and graft; Z87.891 Personal history of nicotine dependence; Z79.899 Other long term (current) drug therapy; J45.909 Unspecified asthma, uncomplicated
CPT/HCPCS: 36415; 70450; 71045; 80048; 80053; 80061; 80307; 81001; 83036; 83735; 84443; 84484; 85025; 85610; 85730; 93005; 93306; 93458; 93886; 96365; 99152; G0378; J2250; J2405